=== PATIENT | male | born 1975 | race Caucasian/White ===

== ENCOUNTER → 2017-03-03 | Emergency (ER) | payer MEDICAID ==
[~2017-03-03] VITALS: Ht 157.5 cm; Wt 54.4 kg
[~2017-03-03] MED LIST: CELEXA20 MG ORAL
[2017-03-03 21:12] VITALS: BP 139/90
--- NOTE | 2017-03-04 23:30 | Emergency Room Report ---
History of Present Illness General Chief Complaint: General Complaint Source: Patient Present Illness Allergies: Coded Allergies: NO KNOWN ALLERGIES (Unverified Allergy, Unknown, 04/02/14) No Known Allergies (Unverified , 08/26/16) UNABLE TO ASSESS (Unverified , 08/09/16) Nursing Documentation-PMH Hx Cardiac Problems: No Hx Hypertension: No Hx Pacemaker: No Hx Asthma: No Hx COPD: No Hx Diabetes: No Hx Cancer: No Hx Gastrointestinal Problems: No Hx Dialysis: No History Of Psychiatric Problem: Yes - DEPRESSION Hx Neurological Problems: No Hx Cerebrovascular Accident: No Hx Seizures: No Physical Exam Vital Signs Date Time Temp Pulse Resp B/P Pulse Ox O2 Delivery O2 Flow Rate FiO2 03/03/17 20:47 98.1 86 16 120/80 98 Room Air Medical Decision Making ER Course Informed by RN that patient eloped. I never saw patient in the ED. Last Vital Signs Date Time Temp Pulse Resp B/P Pulse Ox O2 Delivery O2 Flow Rate FiO2 03/03/17 21:12 98.1 98 16 139/90 98 Room Air Disposition: ELOPED Referrals: [facility],REFERRING (PCP) TRISTEN CHILDRESS M.D. Mar 04, 2017 23:30
== END | disposition left against medical advice (07) ==
LOC: EDUNIT# 20:46 → EDBD 20:51 → EMR 21:16
DX: F41.9 Anxiety disorder, unspecified (principal); Z53.21 Procedure and treatment not carried out due to patient leaving prior to being seen by health care provider
CPT/HCPCS: 99283

== ENCOUNTER 2018-04-07 20:10 | Emergency (ER) | payer MEDICAID ==
[~2018-04-07] VITALS: Ht 177.8 cm; Wt 72.6 kg
[2018-04-07] VITALS (8 sets, daily range): BP systolic 138–153; BP diastolic 65–94
[2018-04-07] MEDS ORDERED: DiphenhydrAMINE 50mg/ml Inj IM ONE (20:30)
[2018-04-07] MEDS ORDERED: Haloperidol 5mg/ml Inj IM ONE (20:30)
[2018-04-07] MEDS ORDERED: LORazepam Inj 2mg/ml 1ml IV ONE (20:30)
[2018-04-07 20:54] LABS: BASOPHILS % (AUTO) 1.1 % (0.0-2.0); LYMPHOCYTES % (AUTO) 10.1 % (20.0-45.0); MEAN CORPUSCULAR VOLUME 89 FL (80-99); MONOCYTES % (AUTO) 6.5 % (1.0-10.0); NEUTROPHILS % (AUTO) 82.4 % (45.0-75.0); PLATELET COUNT 328 K/UL (150-450); RED BLOOD COUNT 5.38 M/UL (4.70-6.10); RED CELL DISTRIBUTION WIDTH 12.9 % (11.6-14.8); WHITE BLOOD COUNT 13.7 K/UL (4.8-10.8)
[2018-04-07 21:06] LABS: ANION GAP 15 mmol/L (5-15); BLOOD UREA NITROGEN 12 mg/dL (7-18); CALCIUM 10.3 MG/DL (8.5-10.1); CARBON DIOXIDE 22 MMOL/L (21-32); CHLORIDE 107 MMOL/L (98-107); CREATININE 1.6 MG/DL (0.55-1.30); POTASSIUM 3.9 MMOL/L (3.5-5.1); SODIUM 144 MMOL/L (136-145)
[2018-04-07 21:12] LABS: ALANINE AMINOTRANSFERASE 157 U/L (12-78); ALBUMIN 4.8 G/DL (3.4-5.0); ALBUMIN/GLOBULIN RATIO 1.3 (1.0-2.7); ALKALINE PHOSPHATASE 64 U/L (46-116); ASPARTATE AMINO TRANSFERASE 76 U/L (15-37); BILIRUBIN,TOTAL 0.3 MG/DL (0.2-1.0); CREATINE KINASE 188 U/L (26-308)
--- NOTE | 2018-04-07 21:14 | Emergency Room Report ---
History of Present Illness General Chief Complaint: Overdose Source: Patient, EMS Present Illness HPI Patient is a 43-year-old male brought in by EMS after increased altered mental status. The patient stated he was taking Adderall. Patient reportedly was noted to be markedly tachycardiac by EMS. The patient was not given medications. He was noted to have some agitation. Allergies: Coded Allergies: NO KNOWN ALLERGIES (Unverified Allergy, Unknown, 04/02/14) Patient History Past Medical History: see triage record Reviewed Nursing Documentation: PMH: Agreed; PSxH: Agreed Nursing Documentation-PMH Hx Cardiac Problems: No Hx Hypertension: No Hx Pacemaker: No Hx Asthma: No Hx COPD: No Hx Diabetes: No Hx Cancer: No Hx Gastrointestinal Problems: No Hx Dialysis: No Hx Neurological Problems: No - HEP C Hx Cerebrovascular Accident: No Hx Seizures: No Review of Systems All Other Systems: limited - by poor cooperation Physical Exam Vital Signs Date Time Temp Pulse Resp B/P (MAP) Pulse Ox O2 Delivery O2 Flow Rate FiO2 04/07/18 20:11 98.7 160 26 145/91 96 Room Air 98.8 Sp02 EP Interpretation: reviewed, normal General Appearance: alert/responsive, no apparent distress, GCS 15, non-toxic Head: atraumatic Eyes: lids + conjunctiva normal, other - dilated pupils ENT: hearing intact, no angioedema Neck: supple/symm/no masses, no meningismus Respiratory: effort normal, no wheezing, chest symmetrical Cardiovascular: no edema, other - tachycardia Cardiovascular #2: 2+ carotid (R), 2+ carotid (L) Gastrointestinal: non-tender, no mass, non-distended, no rebound/guarding, normal bowel sounds Musculoskeletal: gait & station normal, strength & tone normal, normal ROM, non -tender Neurologic: oriented x3, sensory intact, normal speech Psychiatric: anxious, other - paranoid Skin: no rash, well hydrated Lymphatic: normal inspection Medical Decision Making Restraint Attestation I, Dutch Cooper MD, have personally evaluated this patient. Laboratory tests have been reviewed and addressed accordingly. The patient is deemed to present a danger to themselves and/or others. This is based on the exam, history ( provided by patient, EMS/[facility] and/or family) and observed or reported behavior. Attempts for non-invasive measures have been considered and/or attempted, however, have been futile. It is in the best interest of the nursing staff, the patient, and others involved in this patient's care that behavioral restraints be applied. Patient evaluation reveals the following: Marked agitation, confusion. Diagnostic Impression: Primary Impression: Drug abuse Additional Impression: Sinus tachycardia ER Course The patient presented for agitation. Differential diagnoses include substance abuse, psychosis, bipolar disorder, depression, malingering. Because of complexity of patient's case laboratory testing and imaging studies were ordered. The laboratory studies were notable for elevated creatinine. Patient started on IV fluids. Drug screen was positive for amphetamine.The patient was given sedatives for agitation as well as antipsychotic medications.The patient was placed in restraints due to marked agitation. The patient noted be tachycardic with a heart rate of initially approximate 160. EKG interpreted by me showed sinus tachycardia without acute ST or T wave changes.Laboratory testing was notable for mildly elevated creatinine. The patient was endorsed to Dr. Maya pending final disposition and will likely be discharged when drug intoxication resolves. Labs Test 04/07/18 20:40 White Blood Count 13.7 K/UL (4.8-10.8) Red Blood Count 5.38 M/UL (4.70-6.10) Hemoglobin 16.0 G/DL (14.2-18.0) Hematocrit 48.0 % (42.0-52.0) Mean Corpuscular Volume 89 FL (80-99) Mean Corpuscular Hemoglobin 29.8 PG (27.0-31.0) Mean Corpuscular Hemoglobin Concent 33.4 G/DL (32.0-36.0) Red Cell Distribution Width 12.9 % (11.6-14.8) Platelet Count 328 K/UL (150-450) Mean Platelet Volume 7.3 FL (6.5-10.1) Neutrophils (%) (Auto) 82.4 % (45.0-75.0) Lymphocytes (%) (Auto) 10.1 % (20.0-45.0) Monocytes (%) (Auto) 6.5 % (1.0-10.0) Eosinophils (%) (Auto) 0.0 % (0.0-3.0) Basophils (%) (Auto) 1.1 % (0.0-2.0) Sodium Level 144 MMOL/L (136-145) Potassium Level 3.9 MMOL/L (3.5-5.1) Chloride Level 107 MMOL/L (98-107) Carbon Dioxide Level 22 MMOL/L (21-32) Anion Gap 15 mmol/L (5-15) Blood Urea Nitrogen 12 mg/dL (7-18) Creatinine 1.6 MG/DL (0.55-1.30) Estimat Glomerular Filtration Rate 47.9 mL/min (>60) Glucose Level 118 MG/DL (74-106) Calcium Level 10.3 MG/DL (8.5-10.1) Total Bilirubin 0.3 MG/DL (0.2-1.0) Aspartate Amino Transf (AST/SGOT) 76 U/L (15-37) Alanine Aminotransferase (ALT/SGPT) 157 U/L (12-78) Alkaline Phosphatase 64 U/L (46-116) Total Creatine Kinase 188 U/L (26-308) Troponin I 0.009 ng/mL (0.000-0.056) Total Protein 8.6 G/DL (6.4-8.2) Albumin 4.8 G/DL (3.4-5.0) Globulin 3.8 g/dL Albumin/Globulin Ratio 1.3 (1.0-2.7) Salicylates Level 3.3 ug/mL (2.8-20) Urine Opiates Screen Negative (NEGATIVE) Acetaminophen Level < 2 MCG/ML (10-30) Urine Barbiturates Screen Negative (NEGATIVE) Phencyclidine (PCP) Screen Negative (NEGATIVE) Urine Amphetamines Screen Positive (NEGATIVE) Urine Benzodiazepines Screen Negative (NEGATIVE) Urine Cocaine Screen Negative (NEGATIVE) Urine Marijuana (THC) Screen Negative (NEGATIVE) Serum Alcohol 44 mg/dL EKG Diagnostic Results Rate: tachycardiac Rhythm: NSR ST Segments: no acute changes Last Vital Signs Date Time Temp Pulse Resp B/P (MAP) Pulse Ox O2 Delivery O2 Flow Rate FiO2 04/07/18 20:11 98.7 160 26 145/91 96 Room Air 98.8 Status: improved Disposition: HOME, SELF-CARE Condition: Stable Referrals: [facility],REFERRING (PCP) Dutch Cooper MD April 07, 2018 21:14
[2018-04-07] MEDS ORDERED: Sodium Chloride 500ML 500 ML IV ONE (21:45)
[2018-04-08] VITALS (7 sets, daily range): BP systolic 132–155; BP diastolic 79–92
[2018-04-08] MEDS ORDERED: LORazepam Inj 2mg/ml 1ml IV ONE ×2 (01:15→03:15)
[2018-04-08] MEDS ORDERED: DiphenhydrAMINE 50mg/ml Inj IVP ONE (03:15)
--- NOTE | 2018-04-08 15:55 | Cardiology Report ---
APPROVED REPORT EKG Measurement Heart [id number] SD [id number] [id number] Sinus tachycardia Right atrial enlargement Borderline ECG
== END 2018-04-08 05:35 | disposition home or self-care (01) ==
LOC: EDUNIT# 20:10 → EDBD 20:10 → EMR 20:26
DX: F19.10 Other psychoactive substance abuse, uncomplicated (principal); R00.0 Tachycardia, unspecified; Z86.19 Personal history of other infectious and parasitic diseases
CPT/HCPCS: 36415; 80053; 80307; 80329; 82550; 84484; 85025; 93005; 96372; 96374; 96375; 99283; J1200; J1630